=== PATIENT | female | born 1990 | race Two or more races ===

== ENCOUNTER 2024-11-13 13:39 | Emergency (ER) | payer MEDICAID, SELFPAY ==
[2024-11-13 13:43] VITALS: BP 131/81; PULSE 146; RESP 22; TEMP 36.7; O2SAT 100
[2024-11-13 13:47] VITALS: PULSE 76; RESP 20; O2SAT 100
--- NOTE | 2024-11-13 14:08 | PD.EDNV ---
Nausea/Vomit./Diarrhea-RME/HPI General Chief complaint: Nausea/Vomiting/Diarrhea Stated complaint: NAUSEA/VOMITING Time Seen by Provider: 11/13/24 13:55 Source: patient Arrival date/time: 11/13/24 13:39 34-year-old female with no known medical history presents to the emergency room with a chief complaint of nausea and vomiting x 1 day. Mode of arrival: ambulatory Limitations: no limitations Related Data Previous Rx's ?Medication ?Instructions ?Recorded hydrocodone 5 mg-acetaminophen 325 1 tab PO Q6H PRN pain #20 tabs 05//24 mg tablet Allergies Allergy/AdvReac Type Severity Reaction Status Date / Time No Known Allergies Allergy Verified 11/13/24 13:53 ED Exam General Limitations: Present no limitations Course Orders Category Date Time Status Bedside COVID-19 Antigen Test NOW Care 11/13/24 14:07 Active Bedside Influenza A&B Antigen Test NOW Care 11/13/24 14:07 Active Beta HCG,Quantitative Stat Lab 11/13/24 14:07 Ordered CBC Stat Lab 11/13/24 14:07 Ordered CMP [Comprehensive Metabolic Panel] Stat Lab 11/13/24 14:07 Ordered UA [Urinalysis] Stat Lab 11/13/24 14:07 Ordered Ondansetron Odt [Zofran Odt] Med 11/13/24 14:07 Discontinued 4 mg PO X1 ONE Vital Signs Vital signs: Vital Signs Temperature 98.1 F 11/13/24 13:43 Pulse Rate 146 H 11/13/24 13:43 Respiratory Rate 22 H 11/13/24 13:43 Blood Pressure 131/81 H 11/13/24 13:43 Pulse Oximetry (%) 100 11/13/24 13:43 Oxygen Delivery Method Room Air 11/13/24 13:43 Nausea/Vomiting/Diarrhea Medications / Prescriptions Medication administrations:: Medication Administration History Discontinued Medications Ondansetron HCl (Ondansetron Odt 4 Mg Tabrap) 4 mg PO X1 ONE; Protocol Stop: 11/13/24 14:08 Discharge Plan Prescriptions/Referrals Prescriptions/Med Rec: No Action hydrocodone-acetaminophen 5-325 mg tablet 1 tab PO Q6H MDD 4 PRN (Reason: pain) Qty: 20 0RF Patient/Caregiver Discharge Instructions Print Language: Armenian
--- NOTE | 2024-11-13 14:12 | PD.EDRME ---
Rapid Medical Screening Exam RME Arrival date/time: 11/13/24 13:39 34-year-old female with no known medical history presents to the emergency room with a chief complaint of nausea and vomiting x 1 day. Chief Complaint: Nausea/Vomiting/Diarrhea Time Seen by Provider: 11/13/24 13:55 Vital signs: Vital Signs Temperature 98.1 F 11/13/24 13:43 Pulse Rate 146 H 11/13/24 13:43 Respiratory Rate 22 H 11/13/24 13:43 Blood Pressure 131/81 H 11/13/24 13:43 Pulse Oximetry (%) 100 11/13/24 13:43 Oxygen Delivery Method Room Air 11/13/24 13:43 Vital signs reviewed by provider: Yes
[2024-11-13 14:30] LABS: Basophils % (Auto) 0 % (0-2.5); Eosinophils % (Auto) 0 % (0-10); Hematocrit 43.2 % (36.0-46.0); Hemoglobin 14.1 g/dL (12.0-16.0); Immature Granulocytes % (Auto) 0 % (0-0); Immature Granulocytes Auto 0.05 Thou/mm3 (0.00-0.00); Lymphocytes # (Auto) 0.6 Thou/mm3 (1.0-4.8); Lymphocytes % (Auto) 6 % (10-50); Mean Corpuscular HGB Conc 32.6 g/dl (31.0-37.0); Mean Corpuscular Hemoglobin 26.4 pg (25.0-35.0); Mean Corpuscular Volume 81 fL (80-100); Monocytes # (Auto) 0.6 Thou/mm3 (0.0-0.8); Monocytes % (Auto) 5 % (0-12); Neutrophils # (Auto) 10.3 Thou/mm3 (1.8-7.7); Neutrophils % (Auto) 88 % (37-80); Nucleated Red Blood Cell % 0 /100 WBC (0); Platelet Count 266 Thou/mm3 (140-440); RDW Standard Deviation 44.4 fL (36.4-46.3); Red Blood Count 5.34 Miln/mm3 (4.00-5.20); White Blood Count 11.7 Thou/mm3 (3.6-11.0)
[2024-11-13] MEDS: ONDANSETRON ODT 4 MG TABRAP PO (14:46)
[2024-11-13 15:14] LABS: Alanine Aminotransferase 11 U/L (10-49); Albumin, Serum 4.9 gm/dL (3.5-5.0); Albumin/Globulin Ratio 1.6 (1.2-2.2); Alkaline Phosphatase 97 U/L (46-116); Anion Gap 11 (7-16); Aspartate Amino Transferase < 10 U/L (0-34); BUN/Creatinine Ratio 10 Ratio (12-20); Bilirubin,Total 0.4 mg/dL (0.3-1.2); Blood Urea Nitrogen 7 mg/dL (9-23); Calcium 9.6 mg/dL (8.3-10.6); Calcium (Corrected) 9.6 mg/dL (8.5-10.1); Carbon Dioxide 22.7 mMol/L (20.0-31.0); Chloride 102 mMol/L (98-107); Creatinine (Component) 0.7 mg/dL (0.6-1.3); Glucose 101 mg/dL (74-106); Osmolality,Calculated 269 (275-295); Potassium 3.8 mMol/L (3.4-5.1); Sodium 136 mMol/L (136-145); Total Protein 7.9 gm/dL (5.7-8.2); eGFR > 60 See Note
[2024-11-13 15:49] LABS: Beta HCG,Quantitative 83965 mIU/mL (<5.0)
[2024-11-13 18:20] LABS: Collection Type, Urine Clean Catch; RBC,Urine 0 /hpf (0-3); WBC,Urine 0 /hpf (0-5)
[2024-11-13 18:31] LABS: Bacteria,Urine Rare; Bilirubin,Urine Negative (Negative); Blood,Urine Negative (Negative); Clarity,Urine Clear (Clear/Hazy); Color,Urine Yellow (Lt Yel-Yel); Glucose, Urine Negative (Negative); Ketones,Urine 4+ (Negative); Leukocyte Esterase,Urine Negative (Negative); Nitrite,Urine Negative (Negative); Protein,Urine 1+ (Neg - Trace); Squamous Epithelial Cell,Urine 2 /hpf (0-5)
[2024-11-13 19:51] VITALS: BP 108/65; PULSE 148; RESP 20; TEMP 37.4; O2SAT 98
[2024-11-13 19:52] VITALS: BMI 35.6
--- NOTE | 2024-11-13 19:56 | PD.EDNV ---
Nausea/Vomit./Diarrhea-RME/HPI General Chief complaint: Nausea/Vomiting/Diarrhea Stated complaint: NAUSEA/VOMITING Time Seen by Provider: 11/13/24 13:55 Arrival date/time: 11/13/24 13:39 Limitations: no limitations RME / HPI RME / HPI Narrative: 11/13/24 13:39 34-year-old female with no known medical history presents to the emergency room with a chief complaint of nausea and vomiting x 1 day. ----- Dr. Mendes's Main ED Evaluation: 34yo female presents to the ED for complaints of nausea and vomiting x this morning. Patient states she's had more than 10 emetic episodes since this morning, reporting she hasn't been able to hold anything down. She reports associated non-bloody diarrhea and abdominal pain 2/2 vomiting. She states she is , reporting her LMP was 09/03/24. She denies any fever, chills, vaginal discharge or any other associated symptoms. Denies any sick contacts. No known allergies. Related Data Previous Rx's ?Medication ?Instructions ?Recorded hydrocodone 5 mg-acetaminophen 325 1 tab PO Q6H PRN pain #20 tabs 04/05/24 mg tablet Allergies Allergy/AdvReac Type Severity Reaction Status Date / Time No Known Allergies Allergy Verified 11/13/24 13:53 Review of Systems Review of Systems Systems Reviewed: All systems reviewed, normal except as documented Past Medical History Past Medical History NEUROLOGIC: Negative Neurological Disorders, Cerebrovascular Accident, Transient Ischemic Attacks (TIA), Dementia, Alzheimer's Disease, Parkinson's Disease, Brain Tumor, Meningitis, Seizures, Epilepsy, Multiple Sclerosis, Cerebral Palsy, Amyotrophic Lateral Sclerosis (ALS/Lilo Gehrig's), Guillain-Tewksbury Syndrome, Spina Bifida, Paralysis, Mendoza's Palsy, Subdural Hematoma, Migraine, Head Trauma, Spinal Cord Injury or Traumatic Brain Injury CARDIAC: Positive Edema and Hypertension; Negative Cardiac Disorders, Myocardial Infarction, Cardiac Arrhythmia, Atrial Fibrillation, Angina, Heart Murmur, Coronary Artery Disease, Atherosclerotic Heart Disease, Peripheral Vascular Disease, Hypercholesterolemia, Aneurysm, Congestive Heart Failure, Congenital Heart Disease, Valvular Heart Disease, Rheumatic Fever, Cardiomyopathy, Pericarditis, Cellulitis, Deep Vein Thrombosis, Hypotension or Varicose Veins RESPIRATORY: Negative Chronic Obstructive Pulmonary Disease (COPD), Asthma, Bronchitis, Emphysema, Pneumonia, Pulmonary Fibrosis, Cystic Fibrosis, Tuberculosis, Pulmonary Embolism, Pulmonary Edema or Sleep Apnea GASTROINTESTINAL: Positive Gastrointestinal Disorders, Gall Bladder Disease and Obesity; Negative Hepatitis, Cirrhosis, Pancreatitis, Celiac Disease, Gastrointestinal Bleed, Esophageal Varices, De La Torre's Esophagus, Colitis, Ulcerative Colitis, Diverticulitis, Diverticulosis, Ulcer, Colorectal Cancer, Irritable Bowel, Crohn's Disease, Obstructive Bowel, Hiatal Hernia, Hemorrhoids or Gastroesophageal Reflux Disease GENITOURINARY: Negative Genitourinary Disorders, Renal Disease, Kidney Stones, Polycystic Kidney Disease, Neurogenic Bladder, Inguinal Hernia, Dialysis, Prostate Cancer or Benign Prostatic Hyperplasia REPRODUCTIVE: Positive Previous Pregnancies; Negative Breast Cancer, Endometriosis, Genital Herpes, Gonorrhea, Pelvic Inflammatory Disease, Syphilis, Testicular Cancer or Uterine Prolapse MUSCULOSKELETAL: Negative Musculoskeletal Disorders, Muscular Dystrophy, Myasthenia Gravis, Marfan's Syndrome, Bone Cancer, Arthritis, Rheumatoid Arthritis, Osteoporosis, Degenerative Disk Disease, Gout, Scoliosis, Carpal Tunnel Syndrome, Fibromyalgia, Fractures, Degenerative Joint Disease, Osteomyelitis or Poliovirus ENT: Negative Cataracts, Glaucoma, Blind, Retinal Detachment, Macular Degeneration, Ear Infection, Deafness, Head Trauma or Eye Prosthesis ENDOCRINE: Positive Diabetes Mellitus Type 2; Negative Endocrine Disorders, Diabetes Mellitus Type 1, Hypoglycemia, Martin's Syndrome, Marcelino's Disease, Hyperthyroidism, Hypothyroidism, Parathyroid Disease, Pituitary Disease, Systemic Lupus Erythematosus, Syndrome of Inappropriate Antidiuretic Hormone (SIADH), Adrenal Disease or Graves' Disease HEMATOLOGIC: Negative Blood Disorders, Anemia, Leukemia, Hemophilia, Thalassemia, Sickle Cell Disease or Clotting Problems PSYCHO/SOCIAL: Negative Psychiatric Problems, Schizophrenia, Recreational Drug Use, Bipolar Disorder, Depression, Anxiety, Behavior Problems, Self-Mutilation, Attention Deficit Disorder, Attention Deficit Hyperactivity Disorder, Depression, Post Traumatic Stress Disorder or Eating Disorder OTHER HISTORY: Negative Hospitalization, Autoimmune Disease, Down Syndrome, Autism, Developmental Delay, Shingles, Falls, Blood Transfusions, Blood Transfusion Reaction, Anesthesia Reactions, Organ Transplant, Chemotherapy, Radiation Therapy, Hyperbaric Therapy, MRSA, VRSA, Vancomycin-Resistant Enterococci, Human Immunodeficiency Virus (HIV), Chicken Pox, Measles, Mumps, Rubella (Kazakh Measles), Pertussis, Clostridium Difficile, Cancer, Breast Cancer, Cervical Cancer, Colorectal Cancer, Lung Cancer, Ovarian Cancer, Prostate Cancer or Testicular Cancer Family History FAMILY HISTORY: Negative Family Psychiatric Problems, Family Respiratory Disorders, Family Cardiac Disorders, Family Gastrointestinal Problems, Family Cancer, Family Surgery or Family Anesthesia Reaction Surgical History SURGICAL: Positive Abdominal Surgery; Negative Cardiac Surgery, Open Heart Surgery, Coronary Artery Bypass Graft, Valve Replacement, Vascular Surgery, Coronary Stent, Cardiac Catheterization, Pacemaker, Angiogram, Auto Implanted Cardiovert Defib, Carotid Endarterectomy, Endocrine Surgery, Thyroidectomy, Ear Surgery, Tympanostomy Tube, Eye Surgery, Nose Surgery, Oral Surgery, Tonsillectomy, Adenoidectomy, Cochlear Implant, Corneal Transplant, Throat Surgery, Tracheostomy, Gastric Bypass Surgery, Gastrostomy, Bowel Surgery, Nephrectomy, Transurethral Resection, Joint Replacement, Amputation, Open Reduction Internal Fixation, Arthroscopy, Neurologic Surgery, Brain Shunt, Mastectomy, Lumpectomy, Hysterectomy, Tubal Ligation, Section or Organ Transplant Social History SMOKING STATUS: Never smoker SECOND HAND EXPOSURE: No ED Exam General Limitations: Present no limitations General appearance: Present alert and in no apparent distress Head Head exam: Present atraumatic Eye Eye exam: Present normal appearance, PERRL and EOMI ENT ENT exam: Present normal exam, normal oropharynx and mucous membranes dry Neck Neck exam: Present normal inspection, full ROM and trachea midline Chest Chest inspection: Present normal inspection and symmetric chest wall rise Respiratory Respiratory exam: Present normal lung sounds bilaterally Cardiovascular Cardiovascular exam: Present normal rhythm, tachycardia and normal heart sounds Abdominal Exam Abdominal exam: Present soft and normal bowel sounds; Absent tenderness or rebound Extremities Exam Extremities exam: Present normal inspection and full ROM Back Exam Back exam: Present normal inspection and full ROM Neurological Exam Neurological exam: Present alert, oriented X3 and CN II-XII intact Psychiatric Psychiatric exam: Present normal affect and normal mood Skin Skin exam: Present warm, dry, intact and normal color Course Quality Measures none Orders Category Date Time Status Bedside COVID-19 Antigen Test NOW Care 11/13/24 14:07 Active Bedside Influenza A&B Antigen Test NOW Care 11/13/24 14:07 Completed Insert IV NOW Care 11/13/24 20:11 Active Beta HCG,Quantitative Stat Lab 11/13/24 14:15 Completed CBC Stat Lab 11/13/24 14:15 Completed CMP [Comprehensive Metabolic Panel] Stat Lab 11/13/24 14:15 Completed UA [Urinalysis] Stat Lab 11/13/24 17:56 Completed Ondansetron Inj [Zofran Inj] Med 11/13/24 20:02 Discontinued 4 mg IV X1 ONE Ondansetron Odt [Zofran Odt] Med 11/13/24 14:07 Discontinued 4 mg PO X1 ONE Sodium Chloride 0.9% 1000 ml [Ns] 1,000 ml Med 11/13/24 20:01 Discontinued IV 999 mls/hr Sodium Chloride 0.9% 1000 ml [Ns] 1,000 ml Med 11/13/24 20:02 Discontinued IV 999 mls/hr Vital Signs Vital signs: Vital Signs Temperature 98.1 F 11/13/24 13:43 Pulse Rate 146 H 11/13/24 13:43 Respiratory Rate 22 H 11/13/24 13:43 Blood Pressure 131/81 H 11/13/24 13:43 Pulse Oximetry (%) 100 11/13/24 13:43 Oxygen Delivery Method Room Air 11/13/24 13:43 Nausea/Vomiting/Diarrhea Patient data External records reviewed:: [facility] previous records (Per chart review, patient has no recent relevant visits.) Clinical information provided by:: patient Social determinants that could affect healthcare access:: none Patient has the following chronic illnesses:: none How is presenting disease/condition affected by chronic disease/condition?: no chronic disease Evaluation data The following diagnostics were reviewed and interpreted by me:: lab results Lab and/or radiology exams considered but not ordered:: none Interpretation Summary: WBC count is elevated at 11.7, [place] [address], UA is unremarkable, Influenza is positive, according to my interpretation. Medications / Prescriptions Medications / Prescriptions considered but not ordered:: none Medication administrations:: Medication Administration History Discontinued Medications Sodium Chloride (Ns) 1,000 mls @ 999 mls/hr IV .Q1H1M ONE Stop: 11/13/24 21:01 Last Infusion: 11/13/24 21:48 Dose: Infused Documented By: Admin: 11/13/24 20:17 Dose: 999 mls/hr Documented By: FANTASMA Sodium Chloride (Ns) 1,000 mls @ 999 mls/hr IV .Q1H1M ONE Stop: 11/13/24 21:02 Last Infusion: 11/13/24 21:48 Dose: Infused Documented By: Admin: 11/13/24 20:17 Dose: 999 mls/hr Documented By: FANTASMA Ondansetron HCl (Ondansetron Odt 4 Mg Tabrap) 4 mg PO X1 ONE; Protocol Stop: 11/13/24 14:08 Last Admin: 11/13/24 14:46 Dose: 4 mg Documented By: AKASH Ondansetron HCl (Ondansetron Inj 2 Mg/Ml Inj 2 Ml) 4 mg IV X1 ONE; Protocol Stop: 11/13/24 20:03 Last Admin: 11/13/24 20:34 Dose: 4 mg Documented By: DB see above Consultations Consultation(s) initiated? (list below): No Diagnosis Nausea Differential Diagnosis: dehydration and other (Influenza, COVID, occult bacteremia, UTI) Most likely diagnosis given after review of the tests above:: see below Admission Indicated Admission indicated?: not indicated Admission Request Was there a request for admission?: No Disposition Plan Disposition Plan: Discharge Discharge Attestation Discharge Attestation: The patient and all family members were given an opportunity to ask questions and understood the discharge instructions. Discharge instructions specifically effects, indications for sooner follow up or return to the emergency department, and the expected course of current diagnosis. Patient condition: Stable Discharge Plan Plan Patient Disposition: HOME (Self Care) Patient condition on transfer: Stable Prescriptions/Referrals Prescriptions/Med Rec: No Action hydrocodone-acetaminophen 5-325 mg tablet 1 tab PO Q6H MDD 4 PRN (Reason: pain) Qty: 20 0RF Referrals: Dougie Marrufo MD [Primary Care Provider] - In 1 week Problem List Clinical Impression: Vomiting and diarrhea Patient/Caregiver Discharge Instructions Print Language: Slovak Stand Alone Forms: Adeline Award Info., Patient Portal Info Letter
[2024-11-13] MEDS: SODIUM CHLORIDE 0.9% 1000 ML 1,000 ML 999 ML IV ×2 (20:17)
[2024-11-13] MEDS: ONDANSETRON INJ 2 MG/ML INJ 2 ML 4 MG IV (20:34)
[2024-11-13 22:41] VITALS: PULSE 89; RESP 16; O2SAT 99
== END 2024-11-13 22:42 | disposition home or self-care (01) ==
PROVIDERS: Nurse Practitioner Family; Emergency Provider Emergency Medicine; PCP Specialist
DX: R11.2 Nausea with vomiting, unspecified (principal); R19.7 Diarrhea, unspecified
CPT/HCPCS: 36415; 80053; 81001; 84702; 85025; 87400; 87811; 96361; 96374; 99284; J2405; J7030; Q0162

== ENCOUNTER 2025-06-03 05:30 | Inpatient (IN) | payer MEDICAID, SELFPAY ==
--- NOTE | 2025-05-31 08:01 | ESHP_ITS ---
RE: BREE PATRICIA : 1990 DATE OF ADMISSION: 06/03/2025 HISTORY OF PRESENT ILLNESS: This is a 34-year-old 6, para 4-0-1-4 with a due date of 06/10/2025 with intrauterine at 39 weeks and 0 days who presents for repeat delivery. The patient denies any leaking or bleeding. She reports normal movement. She has occasional contractions. Her care was uncomplicated. PAST MEDICAL HISTORY: Advanced maternal age. OBSTETRIC HISTORY: 2008, 40 week, normal vaginal delivery, 7 pound male, no complications. 2016, 40 week, normal vaginal delivery, 6 pound 15 ounce male, no complications. 2021, 40 week, normal 04/04/2024, 40 weeks, delivery, 6 pound 3 ounce female. ALLERGIES: NO KNOWN DRUG ALLERGIES. MEDICATIONS: 1. multivitamin 1 p.o. daily. 2. Aspirin 81 mg 1 p.o. daily. REVIEW OF SYSTEMS: She denies any chest pain, palpitations, cough, fever, shortness of breath or lower extremity pain. PHYSICAL EXAMINATION: VITAL SIGNS: Blood pressure 121/80, heart rate 88, respirations 18, temperature 98.6. HEENT: Oropharynx and sclerae are clear. LUNGS: Clear to auscultation bilaterally. HEART: Regular rate and rhythm. ABDOMEN: Gravid, term size. Old Pfannenstiel scar noted. EXTREMITIES: Nontender. SKIN: No gross rashes or lesions. NEUROLOGIC: No focal deficit. ASSESSMENT: Intrauterine at 39 weeks. Previous delivery. Elects repeat delivery. PLAN: Repeat delivery. Informed consent was obtained. The patient was made aware of the risks, complications, alternatives, and benefits of the proposed procedure and she agrees. DT: 09:18:13 TT: 10:44:00 Ref: [id number] - TID: [id number] [facility]
[2025-06-02 11:41] LABS: Basophils # (Auto) 0.0 Thou/mm3 (0.0-0.2); Basophils % (Auto) 0 % (0-2.5); Eosinophils # (Auto) 0.0 Thou/mm3 (0.0-0.5); Eosinophils % (Auto) 1 % (0-10); Hematocrit 35.6 % (36.0-46.0); Hemoglobin 11.7 g/dL (12.0-16.0); Immature Granulocytes Auto 0.03 Thou/mm3 (0.00-0.00); Lymphocytes # (Auto) 1.0 Thou/mm3 (1.0-4.8); Lymphocytes % (Auto) 15 % (10-50); Mean Corpuscular HGB Conc 32.9 g/dl (31.0-37.0); Mean Corpuscular Hemoglobin 27.9 pg (25.0-35.0); Mean Corpuscular Volume 85 fL (80-100); Monocytes # (Auto) 0.5 Thou/mm3 (0.0-0.8); Monocytes % (Auto) 8 % (0-12); Neutrophils # (Auto) 5.1 Thou/mm3 (1.8-7.7); Neutrophils % (Auto) 76 % (37-80); Nucleated Red Blood Cell # 0.00 Thou/mm3 (0.00-0.00); Nucleated Red Blood Cell % 0 /100 WBC (0); Platelet Count 231 Thou/mm3 (140-440); RDW Standard Deviation 45.7 fL (36.4-46.3); Red Blood Count 4.20 Miln/mm3 (4.00-5.20); White Blood Count 6.6 Thou/mm3 (3.6-11.0)
[2025-06-02 12:11] LABS: INR 0.9 (0.9-1.3); Partial Thromboplastin Time 30.6 Seconds (22.0-36.0); Prothrombin Time 10.1 Seconds (9.0-12.2)
[2025-06-02 12:13] LABS: Syphilis Nonreactive (Nonreactive)
[2025-06-02 12:17] LABS: Alanine Aminotransferase < 7 U/L (10-49); Albumin, Serum 3.5 gm/dL (3.5-5.0); Albumin/Globulin Ratio 1.3 (1.2-2.2); Alkaline Phosphatase 221 U/L (46-116); Anion Gap 11 (7-16); Aspartate Amino Transferase 11 U/L (0-34); BUN/Creatinine Ratio 16 Ratio (12-20); Bilirubin,Total 0.3 mg/dL (0.3-1.2); Blood Urea Nitrogen 11 mg/dL (9-23); Calcium 8.2 mg/dL (8.3-10.6); Calcium (Corrected) 8.6 mg/dL (8.5-10.1); Carbon Dioxide 20.3 mMol/L (20.0-31.0); Chloride 110 mMol/L (98-107); Creatinine (Component) 0.7 mg/dL (0.6-1.3); Free T4 (Free Thyroxine) 1.02 ng/dL (0.89-1.76); Globulin 2.6 gm/dL (2.3-3.5); Glucose 122 mg/dL (74-106); Osmolality,Calculated 281 (275-295); Potassium 3.7 mMol/L (3.4-5.1); Sodium 141 mMol/L (136-145); Thyroid Stimulating Hormone 1.40 uIU/mL (0.55-4.78); Total Protein 6.1 gm/dL (5.7-8.2); eGFR > 60 See Note
[2025-06-03] VITALS (33 sets, daily range): BP systolic 100–127; BP diastolic 51–77; PULSE 67–88; RESP 13–25; TEMP 36.4–36.7; O2SAT 94–100; BMI 40.1
[2025-06-03] MEDS: RINGERS LACTATED 1000 ML 1,000 ML 999 ML IV (05:35)
[2025-06-03] MEDS: RINGERS LACTATED 1000 ML 1,000 ML 100 ML IV (06:40)
[2025-06-03] MEDS: FAMOTIDINE INJ 10 MG/ML VIAL 2 ML 20 MG IV (07:24)
[2025-06-03] MEDS: ceFAZolin/D5W 2 GM IV 2 GM/100 ML BAG IV (07:25)
--- NOTE | 2025-06-03 07:28 | ESOP_ITS ---
Operative Note - CAFETERIA TABLE ATTENDANT Procedure Date of procedure: 06/03/25 Procedure Performed: Repeat Low Transverse C/S via Pfannesteil skin incision Indication: Viable IUP 39w0d Desires repeat C/S Pre-Op diagnosis: Viable IUP 39w0d Desires repeat C/S Post-Op diagnosis: Viable IUP 39w0d Desires repeat C/S Anesthesia type: Spinal Procedure description: After proper informed consent was obtained and the patient was made aware of the risks, complications, alternatives and benefits of the proposed procedure she was taken to the operating room where she underwent induction of spinal anesthesia. She was prepped and draped in the usual sterile fashion. A timeout was performed.? A Pfannenstiel skin incision was made with the scalpel and carried through to the underlying layer of fascia with the Bovie. The fascia was nicked in the midline incision and the incision was extended bilaterally with the Bovie. The inferior aspect of the fascial incision was grasped with Ross clamps elevated and the underlying rectus muscle dissected off with the Bovie. The superior aspect the fascial incision was grasped with Ross clamps elevated and the underlying rectus muscle dissected off with the Bovie. The rectus muscles were in the midline. The peritoneum was grasped between 2 Robin clamps and entered sharply with the Metzenbaum scissors. The peritoneum was extended superiorly and inferiorly with good visualization of the bladder. The vesicouterine peritoneum was incised transversely and the bladder flap created digitally. A [place] blade was inserted. A low transverse incision was made in the uterus with a scapel and the incision was extended digitally. The 's head delivered and the mouth and nose were suctioned with the bulb suction. The shoulder and body delivered atraumatically. The cord was clamped after 30 second delayed cord clamping and the cord was cut.? The infant was handed off to the waiting Pediatric staff, cord blood was collected for lab testing. The placenta was removed complete and intact. The uterus was exteriorized and cleared of all clots and debris. The uterine incision was closed with #1-0 chromic catgut suture in a running interlocking fashion. A second layer of the same suture was used to imbricate the first layer and obtain excellent hemostasis. The vesicouterine peritoneum was closed with 2-0 chromic catgut suture in a running fashion. The firm uterus was returned to the abdomen. The gutters were cleared of all clots and debris. The peritoneum was closed with 0 chromic catgut suture in running fashion. The rectus muscle was closed with 0 chromic catgut suture. The fascia was closed with 0 Vicryl beginning at each angle and ending in the center in a running fashion. The subcutaneous tissue was irrigated with warmed normal saline solution and found to be hemostatic. The subcutaneous tissue was closed with 2-0 chromic catgut suture in a running fashion. The skin was closed with 4-0 Monocryl. A Dermabond Prineo dressing was applied and a sterile pressure dressing was applied.? She tolerated the procedure well. Counts were correct. I discussed with the patient the nature of her condition, intraoperative findings and expectation for recovery all? questions answered. Specimen: none Estimated blood loss (ml): 900 Findings: Viable female APGARS 9/9 Clear amniotic fluid Placenta removed complete and intact Uterus ovaries and tubes wnl. Uterus atonic but reponsed to uterotonics. Complications: none Surgical staff Ean Youngblood CRNA Operation Date: 06/03/25 07:45 <No data on this case meets the specified criteria> Diagnosis Discharge Diagnosis (1) delivery delivered: Status: Acute (2) Uterine atony: Status: Acute Problem List Completed Was Problem List Reviewed/Reconciled?: Yes
--- NOTE | 2025-06-03 07:28 | PD.LDDS ---
DS: Providers Provider Date of admission: 06/03/25 05:30 Primary care physician: JAMEL Waters MD Admitting Provider: Dougie Marrufo MD Attending Provider on Admission: Dougie Marrufo MD Attending Provider on DC: Dougie Marrufo MD Discharging Provider: Dougie Marrufo MD DS: Diagnosis Problem List Completed Was Problem List Reviewed/Reconciled?: Yes Summary/Hosp Course Peripartum Data Delivery Method: Low Transverse Procedures: Procedures Operation Date: 06/03/25 07:45 <No data on this case meets the specified criteria> 1: Gender: Female Disposition of : home Time Spent with Patient Time attestation: Exam Vital Signs Temp Pulse Resp BP Pulse Ox O2 Del Method 97.8 F 88 20 127/74 99 Room Air 06/03/25 05:36 06/03/25 05:46 06/03/25 05:36 06/03/25 05:46 06/03/25 07:25 06/03/25 05:36 Discharge Plan Plan Patient Disposition: HOME (Self Care) Patient condition on transfer: Stable Prescriptions/Referrals Prescriptions/Med Rec: New ibuprofen 600 mg tablet 600 mg PO Q6H PRN (Reason: pain) Qty: 30 0RF Continued PNV no.95-ferrous fumarate-FA [] 28 mg iron- 800 mcg tablet 1 tab PO .q day Patient Comments: TAKE 1 TABLET BY MOUTH EVERY DAY hydrocodone-acetaminophen 5-325 mg tablet 1 tab PO Q6H MDD 4 PRN (Reason: pain) Qty: 20 0RF Referrals: Matti Doyle MD [Primary Care Provider] - Patient/Caregiver Discharge Instructions Discharge Activity: activity as tolerated Other Discharge Activity Instructions:: Follow up office 1 week She already has a Rx for [place]. Education Materials: C Section Dc Print Language: Vietnamese Stand Alone Forms: Adeline Award Info., Patient Portal Info Letter Planned Discharge Date 06/05/25
[2025-06-03] MEDS: METOCLOPRAMIDE INJ 5 MG/ML VIAL 2 ML 10 MG IVP (07:32)
[2025-06-03] MEDS: OXYTOCIN in NS 20 units 20 UNIT/1,000 ML BAG 125 UNIT IV (14:07)
[2025-06-03 14:26] LABS: Basophils # (Auto) 0.0 Thou/mm3 (0.0-0.2); Basophils % (Auto) 0 % (0-2.5); Eosinophils # (Auto) 0.0 Thou/mm3 (0.0-0.5); Eosinophils % (Auto) 0 % (0-10); Hematocrit 33.6 % (36.0-46.0); Hemoglobin 11.3 g/dL (12.0-16.0); Immature Granulocytes Auto 0.06 Thou/mm3 (0.00-0.00); Lymphocytes # (Auto) 0.4 Thou/mm3 (1.0-4.8); Lymphocytes % (Auto) 3 % (10-50); Mean Corpuscular HGB Conc 33.6 g/dl (31.0-37.0); Mean Corpuscular Hemoglobin 28.0 pg (25.0-35.0); Mean Corpuscular Volume 83 fL (80-100); Monocytes # (Auto) 0.3 Thou/mm3 (0.0-0.8); Monocytes % (Auto) 2 % (0-12); Neutrophils # (Auto) 12.8 Thou/mm3 (1.8-7.7); Neutrophils % (Auto) 95 % (37-80); Nucleated Red Blood Cell # 0.00 Thou/mm3 (0.00-0.00); Nucleated Red Blood Cell % 0 /100 WBC (0); Platelet Count 189 Thou/mm3 (140-440); RDW Standard Deviation 44.1 fL (36.4-46.3); Red Blood Count 4.03 Miln/mm3 (4.00-5.20); White Blood Count 13.5 Thou/mm3 (3.6-11.0)
[2025-06-04] MEDS: KETOROLAC INJ 30 MG/ML VIAL IVP (00:31)
[2025-06-04] MEDS: SIMETHICONE 80 MG CHEW PO ×2 (00:32→11:24)
[2025-06-04 04:14] VITALS: BP 105/63; PULSE 85; RESP 20; TEMP 36.5; O2SAT 95
[2025-06-04] MEDS: HYDROcodone/APAP 5/325 TABLET 2 TAB PO ×2 (04:43→11:24)
[2025-06-04 05:56] LABS: Basophils # (Auto) 0.0 Thou/mm3 (0.0-0.2); Basophils % (Auto) 0 % (0-2.5); Eosinophils # (Auto) 0.0 Thou/mm3 (0.0-0.5); Eosinophils % (Auto) 0 % (0-10); Hematocrit 27.1 % (36.0-46.0); Hemoglobin 8.9 g/dL (12.0-16.0); Immature Granulocytes Auto 0.05 Thou/mm3 (0.00-0.00); Lymphocytes # (Auto) 1.3 Thou/mm3 (1.0-4.8); Lymphocytes % (Auto) 12 % (10-50); Mean Corpuscular HGB Conc 32.8 g/dl (31.0-37.0); Mean Corpuscular Hemoglobin 27.9 pg (25.0-35.0); Mean Corpuscular Volume 85 fL (80-100); Monocytes # (Auto) 0.9 Thou/mm3 (0.0-0.8); Monocytes % (Auto) 8 % (0-12); Neutrophils # (Auto) 9.1 Thou/mm3 (1.8-7.7); Neutrophils % (Auto) 80 % (37-80); Nucleated Red Blood Cell # 0.00 Thou/mm3 (0.00-0.00); Nucleated Red Blood Cell % 0 /100 WBC (0); Platelet Count 166 Thou/mm3 (140-440); RDW Standard Deviation 46.1 fL (36.4-46.3); Red Blood Count 3.19 Miln/mm3 (4.00-5.20); White Blood Count 11.4 Thou/mm3 (3.6-11.0)
[2025-06-04 08:00] VITALS: BP 114/72; PULSE 80; RESP 17; TEMP 36.8; O2SAT 97
--- NOTE | 2025-06-04 08:30 | PD.LDPPPRG ---
Subjective Subjective Interval history: Delivery type: Patient doing well this morning. No acute complaints. Ambulating, tolerating p.o. and voiding without difficulty. HTN/Pre-Eclampsia screen: No chest pain, shortness of breath, headache, visual changes, epigastric or right upper quadrant pain. Breast-feeding, lochia diminishing. Bowel: Flatus+/ BM+ Exam Vital Signs Temp Pulse Resp BP Pulse Ox O2 Del Method 97.7 F 85 20 105/63 95 Room Air 06/04/25 04:14 06/04/25 04:14 06/04/25 04:14 06/04/25 04:14 06/04/25 04:14 06/04/25 04:14 Constitutional Constitutional: no acute distress Routine HEENT Exam Head: Present normocephalic and atraumatic Eye: Present EOMI and PERRL ENT: Present mucous membranes moist Routine Neck Exam Neck: Present supple and trachea midline Routine Respiratory Exam Respiratory: Present chest non-tender, lungs clear, normal breath sounds and no resp distress Routine Cardiovascular Exam Cardiovascular: Present RRR Routine Abdominal Exam Abdominal: Present soft and normoactive bowel sounds Routine Extremities Exam Extremities: Present full ROM Routine Skin Exam Skin: Present intact, dry and warm Routine Neurological Exam Neurological: Present alert, oriented X3 and CN II-XII intact Routine Psychiatric Exam Psychiatric: Present normal affect and normal thought process Objective Labs 06/04/25 05:15 06/02/25 10:45 Labs: Laboratory Results - last 24 hr 06/03/25 06/04/25 13:56 05:15 WBC 13.5 H D 11.4 H RBC 4.03 3.19 L Hgb 11.3 L 8.9 L D Hct 33.6 L 27.1 L MCV 83 85 MCH 28.0 27.9 MCHC 33.6 32.8 RDW Std Deviation 44.1 46.1 Plt Count 189 D 166 Neut % (Auto) 95 H 80 Lymph % (Auto) 3 L 12 [place] % (Auto) 2 8 Eos % (Auto) 0 0 Baso % (Auto) 0 0 Neut # (Auto) 12.8 H 9.1 H Lymph # (Auto) 0.4 L 1.3 [place] # (Auto) 0.3 0.9 H Eos # (Auto) 0.0 0.0 Baso # (Auto) 0.0 0.0 Immature Gran # (Auto) 0.06 H 0.05 H Absolute Nucleated RBC 0.00 0.00 Immature Gran % 0 0 Nucleated RBC % 0 0 Assessment & Plan Problem List (1) delivery delivered: Status: Acute Assessment and plan: 1. Continue routine /post-op care 2. Labs reviewed, cbc appropriate 3. Remove dressing/Mejía 4. Encourage to ambulate, shower 5. Encourage PO intake, breast feeding (2) Uterine atony: Status: Acute Time Spent With Patient Time: Total time spent is greater than 50% in coordination of care (as documented) at patient's floor/unit and/or counseling patient:
[2025-06-04] MEDS: ENOXAPARIN SOD INJ 40 MG/0.4 ML SYRINGE SC (09:11)
--- NOTE | 2025-06-04 10:40 | CHAP ---
Patient was visited by the Spiritual Care Volunteer who prayed for them and gave Baby [place] for . (Volunteer was in the hospital from 09:30-10:40)
[2025-06-04] MEDS: Milk Of Magnesia Susp 30 ML UDC PO (11:24)
[2025-06-04 12:00] VITALS: BP 126/70; PULSE 81; RESP 18; TEMP 36.6; O2SAT 98
[2025-06-04] MEDS: IBUPROFEN TAB 400 MG TABLET 800 MG PO (17:02)
[2025-06-04 20:30] VITALS: BP 126/72; PULSE 78; RESP 18; TEMP 36.6; O2SAT 97
[2025-06-04] MEDS: HYDROcodone/APAP 5/325 TABLET 1 TAB PO (21:46)
[2025-06-05 03:50] VITALS: BP 120/78; PULSE 73; RESP 18; TEMP 36.6; O2SAT 98
[2025-06-05] MEDS: IBUPROFEN TAB 400 MG TABLET 800 MG PO (04:04)
[2025-06-05 08:00] VITALS: BP 110/72; PULSE 78; RESP 18; TEMP 36.6; O2SAT 98
[2025-06-05] MEDS: ENOXAPARIN SOD INJ 40 MG/0.4 ML SYRINGE SC (09:51)
--- NOTE | 2025-06-05 11:42 | PD.LDPPPRG ---
Subjective Subjective Interval history: The patient is a 34-year-old G6P now 5015 postoperative day #2 status post scheduled repeat by Dr Marrufo. She is Dr Marrufo's patient. She states this is her second . Her first was for high blood pressure and suspected abruption per patient. Today she is resting comfortably in bed with her spouse at bedside. The baby is at bedside. She denies heavy bleeding, fevers or chills. She is breast and bottlefeeding. Her pain is controlled, she is emptying her bladder normally. She is passing flatus. She is tolerating a general diet. Exam Vital Signs Temp Pulse Resp BP Pulse Ox O2 Del Method 98 F 78 18 110/72 98 Room Air 06/05/25 08:00 06/05/25 08:00 06/05/25 08:00 06/05/25 08:00 06/05/25 08:00 06/05/25 08:00 Narrative Exam Patient is alert and oriented x 3 in no apparent distress she is resting comfortably in bed. Her fundus is firm nontender. Her incisions clean dry and intact. Extremities show no significant edema or erythema. Objective Labs 06/04/25 05:15 06/02/25 10:45 Assessment & Plan Problem List (1) delivery delivered: Status: Acute Assessment and plan: Patient is ambulating, tolerating a general diet. Her vital signs and labs are stable. She is passing flatus and tolerating a general diet. She is discharged home post op day 2 in stable condition. Discharge instructions given. (2) Uterine atony: Status: Acute Assessment and plan: Patient received medications during her by Dr Marrufo. Predelivery hemoglobin 11.7 postdelivery hemoglobin 8.9. Vital signs stable. No transfusion needed. Time Spent With Patient Time: Total time spent is greater than 50% in coordination of care (as documented) at patient's floor/unit and/or counseling patient: Time with patient: less than 15 minutes
--- NOTE | 2025-06-05 11:50 | ESDS_ITS ---
DS: Providers Provider Date of admission: 06/03/25 05:30 Primary care physician: JAMEL Waters MD Admitting Provider: Dougie Marrufo MD Attending Provider on Admission: Jeff Dumont MD Consults: 06/03/25 09:56 Referral Routine Comment: Attending Provider on DC: Lulu Haile [facility] ([facility]) Discharging Provider: Lulu Haile MD ([facility]) Anticipated date of discharge: 06/05/25 DS: Diagnosis Discharge Diagnosis (1) care following delivery: Status: Acute Assessment & Plan: Patient was given discharge instructions. She is discharged home postoperative day #2 in stable condition. Problem List Completed Was Problem List Reviewed/Reconciled?: Yes Summary/Hosp Course Brief History: Patient is a 34-year-old -0-1-4 presented 06/03/2025 for scheduled repeat C- section #[address] Marrufo. Please see history and physical for further details. Hospital course: Patient underwent an uncomplicated repeat #2 around 7:30 in the morning on 06/03/2025. Please see op report for further details. Postoperative day #1 patient was ambulating passing flatus her Mejía was removed. Her vital signs were stable. Her predelivery hemoglobin was 11.7. Her postop delivery hemoglobin is 8.9. On postop day #2, patient was to lerating a general diet and emptying her bladder passing flatus. Her pain was controlled with p.o. pain medications. She was discharged home postop day #2 in stable condition. Peripartum Data Delivery Method: Low Transverse Episiotomy Description: None Procedures: Procedures Operation Date: 06/03/25 07:45 Actual Procedure Side Surgeon p in OB Dougie Marrufo MD complications: none Status at Discharge Cognitive/behavioral status at discharge: Patient is alert and oriented x 3 in no apparent distress Functional status at discharge: independent ambulation Overall status at discharge: patient is progressing back to baseline Time Spent with Patient Time attestation: Total time spent providing and/or coordinating discharge services: Time spent: Less than 30 minutes Specific discharge activities: No heavy lifting, intercourse, douching, bathtubs, or swimming x 6 weeks. No heavy exercise x 6 weeks. Exam Vital Signs Temp Pulse Resp BP Pulse Ox O2 Del Method 98 F 78 18 110/72 98 Room Air 06/05/25 08:00 06/05/25 08:00 06/05/25 08:00 06/05/25 08:00 06/05/25 08:00 06/05/25 08:00 Narrative Exam Fundus is firm nontender. Incision is clean dry and intact. Extremities show no significant edema or erythema. Discharge Plan Plan Patient Disposition: HOME (Self Care) Disposition Comment: Stable Patient condition on transfer: Stable Prescriptions/Referrals Prescriptions/Med Rec: New ibuprofen 600 mg tablet 600 mg PO Q6H PRN (Reason: pain) Qty: 30 0RF Continued PNV no.95-ferrous fumarate-FA [] 28 mg iron- 800 mcg tablet 1 tab PO .q day Patient Comments: TAKE 1 TABLET BY MOUTH EVERY DAY hydrocodone-acetaminophen 5-325 mg tablet 1 tab PO Q6H MDD 4 PRN (Reason: pain) Qty: 20 0RF Referrals: SQ Matti Waters MD [Primary Care Provider] - Patient/Caregiver Discharge Instructions Discharge Activity: activity as tolerated Other Discharge Activity Instructions:: Follow up office 1 week She already has a Rx for [place]. Other Discharge Diet Instructions: General Diet as tolerated Education Materials: C Section Dc Print Language: Icelandic Activity Restrictions/Additional Instructions: No heavy lifting, tampons, douching, bathtubs, swimming or intercourse x 6 weeks. No exercise x [address] Marrufo for follow-up in 1 to 2 weeks. Call for heavy bleeding, fevers, or severe depression. Stand Alone Forms: Adeline Award Info., Patient Portal Info Letter Discharge Order Discharge Orders: Discharge (Routine); Ordered 06/05/25 Ordered By: Lulu Haile ([facility]) Planned Discharge Date 06/05/25
[2025-06-05] MEDS: HYDROcodone/APAP 5/325 TABLET 1 TAB PO (12:09)
--- NOTE | 2025-06-10 22:09 | OBDSUM_ITS ---
Data ([facility]) Data Hx Section: No : 6 Term: 2 : 0 Livin Abortions: Spontaneous & Theraputic: 0 Delivery Data ([facility]) Labor Data ROM date: 06/03/25 ROM time: 08:07 Amniotic membrane rupture type: Artificial Amniotic fluid description: Clear Delivery Data EDC: 06/10/25 EDC calculated by:: LMP/early US confirmation Onset of labor date: 06/03/25 Onset of labor time: 08:07 Complete dilation date: 06/03/25 Complete dilation time: 08:07 [place] delivery date: 06/03/25 [place] delivery time: 08:07 Gestational age (weeks): 39 Gestational age (days): 0 Placenta delivery date: 06/03/25 Placenta delivery time: 08:08 Stage 1 total time: Labor - Stage 1 Duration 0 minutes Delivered by: Ge[place] Delivery nurse: [email or web address] [place] nurse: [email or web address] Manager Style at delivery: Yes (Stone) Support person(s) at delivery: FOB Other staff at delivery: GUEST SERVICE REPRESENTATIVE: Melinda SECURITY DEVELOPER: Suzan Delivery Method Delivery method: Low Transverse Presentation: Vertex Anesthesia Type Anesthesia Type: Spinal Anesthesia type: Spinal Placenta Placenta delivery description: Manual Removal Cord blood sent to lab: Yes cord blood collection: Cord Blood Type Episiotomy Episiotomy description: None Umbilical Cord cord description: 3 Vessels [place] Data ([place]) [place] Data order: 1 's gender: Female Identification band number: [id number] weight (gms): 7 lb 8.99 oz Weight (pounds): 7 lbs and 9.0 ozs 1 minute: 9 5 minutes: 9
== END 2025-06-05 14:15 | disposition home or self-care (01) | DRG 540 ==
LOC: S4SX 13:09 → S4NX 17:10
PROVIDERS: Obstetrics & Gynecology; Admitting Provider Specialist; PCP Family Medicine; Visit Provider Obstetrics & Gynecology
PROC: 10D00Z1 Extraction of Products of Conception, Low, Open Approach (ICD-10-PCS; CPT 59514; principal; 2025-06-03 07:30)
DX: O34.211 Maternal care for low transverse scar from previous cesarean delivery (principal); Z37.0 Single live birth; Z3A.39 39 weeks gestation of pregnancy; O62.2 Other uterine inertia
CPT/HCPCS: 36415; 80053; 84439; 84443; 85025; 85610; 85730; 86780; 86850; 86900; 86901; A4314; A4649; J0689; J1100; J1650; J1885; J2210; J2274; J2405; J2590; J2765; J3010; J3490; J7120; S0191; A9270; J2270